=== PATIENT | male | born 1955 | race Asian ===

== ENCOUNTER → 2018-03-15 | Outpatient (CLI) | payer BC ==
[~2018-03-15] MED LIST: ACETAMINOPHEN325 M1 PO; ASA81BEC PO; ASPIR 8181 MG PO; ASPIRIN EC325 MG PO; ATORVASTATIN CA40 MG PO; CALCIUM PO; CARDURA2 MG PO; CEFAZOLIN 1GM VI1 G1 IV; CENTRUM SILVER1 EAC4 PO; CHLORTHALIDONE25 MG PO; CILOSTAZOL50 MG PO; COLACE100 MG PO; COZAAR 50 MG TA50 M2 PO; COZAAR100 MG PO; FISH OIL 1,001000 M1 PO; FLONASE 0.05%50 MCG NASAL; HUMALOG100 UNIT/1 SUBQ; LANTUS100 UNIT/M SUBQ; LIPITOR80 MG PO; NORVASC 5 MG TAB5 MG PO; PERCOCET PO; PROTONIX40 M1 PO; TOPROL XL25 MG PO; ZOSYN 3.3753.375 GM IV
== END ==
LOC: RAD 12:46
DX: S22.31XA Fracture of one rib, right side, initial encounter for closed fracture (principal); R05 Cough; R06.00 Dyspnea, unspecified; X58.XXXA Exposure to other specified factors, initial encounter; Y93.89 Activity, other specified; Y92.89 Other specified places as the place of occurrence of the external cause; Y99.8 Other external cause status